=== PATIENT | female | born 1960 | race Caucasian/White ===

== ENCOUNTER → 2017-04-10 | Outpatient (CLI) | payer BC ==
[~2017-04-10] MED LIST: AMOXICILLIN; ASCO120P2 PO; ATOR10TA65 PO; ATOR20TA65 PO; CHOL10005 PO; CYAN50TA3 PO; DEN60I SUBQ; ESTR0.5T18 PO; LEVO50TA80 PO; LISI-362 PO; MON10 PO; MULT1TAB64 PO; OMEP-137 PO; amberen PO
[2017-04-10 09:44] LABS: PLATELET COUNT, AUTOMATED 306 K/uL (150-450)
[2017-04-10 10:03] LABS: LDL CHOLESTEROL 107 mg/dl
== END ==
LOC: LAB 09:23
PROVIDERS: ATTEND Internal Medicine
DX: N28.9 Disorder of kidney and ureter, unspecified (principal); M81.0 Age-related osteoporosis without current pathological fracture; R20.2 Paresthesia of skin; I10 Essential (primary) hypertension; E78.5 Hyperlipidemia, unspecified; E03.9 Hypothyroidism, unspecified; R31.9 Hematuria, unspecified
CPT/HCPCS: 36415; 81001; 82040; 82247; 82306; 82310; 82374; 82435; 82465; 82550; 82565; 82947; 83718; 84075; 84132; 84155; 84295; 84443; 84450; 84460; 84478; 84520; 85025; 87088

== ENCOUNTER → 2017-11-13 | Outpatient (CLI) | payer BC ==
--- NOTE | 2017-11-13 14:15 | RADIOLOGY IMAGING REPORT ---
FACILITY: [facility] - [place] PATIENT NAME: ENIO GARG : [id number] MR: [id number] V: [id number] EXAM DATE: ORDERING PHYSICIAN: NATALIA BALTAZAR TECHNOLOGIST: Hannah Mayes PROCEDURE:BILATERAL DIGITAL SCREENING MAMMOGRAM WITH CAD ASSISTED INTERPRETATION & 3D TOMOSYNTHESIS COMPARISON:Prior mammograms 11/09/16, 11/09/15, 11/05/14, 10/08/13, 10/07/12, 10/05/11. INDICATIONS:SCREENING FINDINGS: Moderately dense heterogeneous fibroglandular tissue is seen throughout the breasts. The parenchymal pattern has remained stable allowing for difference in mammographic technique & patient positioning. There is no evidence of malignant appearing mass, malignant appearing calcifications or other secondary sign of malignancy in either breast. DIAGNOSTIC CATEGORY 1--NEGATIVE. RECOMMENDATIONS: ROUTINE MAMMOGRAM AND CLINICAL EVALUATION. IMPRESSION: BIRADS 1: Negative. No significant abnormality is seen. Dictated by: Reina Miguel M.D. on 11/13/2017 at 11:29 Transcribed by: ANNABEL on 11/13/2017 at 11:42 Approved by: Reina Miguel M.D. on 11/13/2017 at 14:13 [facility]
== END ==
LOC: MAMO 01:27
PROVIDERS: ATTEND Internal Medicine
DX: Z12.31 Encounter for screening mammogram for malignant neoplasm of breast (principal)
CPT/HCPCS: 77063; 77067

== ENCOUNTER → 2017-11-30 | Outpatient (CLI) | payer BC ==
[2017-11-30 09:15] LABS: PLATELET COUNT, AUTOMATED 281 K/uL (150-450)
--- NOTE | 2017-11-30 14:27 | RADIOLOGY IMAGING REPORT ---
FACILITY: [facility] - [place] PATIENT NAME: Sylvia Mcgovern : 1960 MR: [id number] V: [id number] EXAM DATE: ORDERING PHYSICIAN: NATALIA BALTAZAR TECHNOLOGIST: Location: [facility] - [place] Patient: Sylvia Mcgovern : 1960 Visit/Account:[id number] Date of Sevice: 11/30/2017 DEXA Scan Clinical history: Osteoporosis. Comparison: DEXA scan from 01/28/2015. LUMBAR SPINE: The bone mineral density (BMD) measured from L1-L4 correlates with a Z-score of -1.2 and a T-score of -2.3 which is osteopenia as defined by the World Health Organization. The corresponding risk of fra cture in the lumbar spine is 4-6 times increased compared with a young adult reference population. T his value has increase by 6.7 % since the prior study. More than 5% change is considered significant . HIP: Bone mineral density (BMD) measured in the LEFT total hip region correlates with a Z-score -0.3 and a T-score of -1.1 which is osteopenia as defined by the World Health Organization. The corresponding risk of fracture in the hip is 2-3 times increased compared to a young adult reference population. Th is value has increase by 3.2 % since the prior study. More than 5% change is considered significant. T score left femoral neck -1.7 Bone mineral density (BMD) measured in the Femoral Neck region measures 0.797 g/cm?. IMPRESSION: 1. Lumbar spine: Osteopenia. There has been 6.7% increase in the bone mineral density since the pre vious exam. 2. Left Total Hip: Osteopenia. There has been 3.2% increase in the bone mineral density since the p revious exam. 3. Femoral Neck: Bone Mineral Density is 0.797 g/cm? The next DEXA scan of this patient should include the following sites: L1-L4 and the left hip. FRAX? WHO Fracture Risk Assessment Tool link: <http://www.shef.ac.uk/FRAX/tool.jsp?locationValue=9> PLEASE NOTE: 1) The World Health Organization defines low BMD as follows: T-score Normal > -1 Osteopenia < -1 and > -2.5 Osteoporosis < -2.5 without fractures Established osteoporosis < -2.5 with fractures 2) In general, you may wish to consider: Diagnosis Treatment Follow-up DEXA Normal BMD Prevention 2-3 years Osteopenia Prevention/therapy 1-2 years Osteoporosis Therapy Yearly 3) Fracture risk estimated from the T-score is more accurate for vertebral fractures (often spontane ous) than for hip fractures. Report Dictated By: Reina Miguel MD at 11/30/2017 2:20 PM Report E-Signed By: Reina Miguel MD at 11/30/2017 2:23 PM WSN:[email or web address]
== END ==
LOC: LAB 08:52
PROVIDERS: ATTEND Internal Medicine
DX: M85.80 Other specified disorders of bone density and structure, unspecified site (principal); R53.83 Other fatigue; E78.5 Hyperlipidemia, unspecified; E03.9 Hypothyroidism, unspecified; I10 Essential (primary) hypertension
CPT/HCPCS: 36415; 77080; 82607; 82746; 85025

== ENCOUNTER → 2017-12-04 | Outpatient (CLI) | payer BC | LOC: RESP 01:25 | PROVIDERS: ATTEND Internal Medicine | DX: G47.33 Obstructive sleep apnea (adult) (pediatric) (principal) ==